=== PATIENT | male | born 1995 | race Caucasian/White ===

== ENCOUNTER 2019-12-18 21:33 | Emergency (ER) | payer BC ==
[~2019-12-18] VITALS: Ht 190.5 cm; Wt 104.5 kg
[2019-12-18 22:11] LABS: BASOPHILS # (AUTO) 0.1 X10'3 (0-0.2); BASOPHILS % (AUTO) 1.1 % (0-1); EOSINOPHILS # (AUTO) 0.1 X10'3 (0-0.9); EOSINOPHILS % (AUTO) 0.7 % (0-6); HEMATOCRIT 47.1 % (42.0-52.0); HEMOGLOBIN 16.5 g/dl (14.0-17.9); LYMPHOCYTES # (AUTO) 3.7 X10'3 (1.1-4.8); LYMPHOCYTES % (AUTO) 44.7 % (21-51); MEAN CORPUSCULAR HEMOGLOBIN 33.3 PG (27.0-31.0); MEAN CORPUSCULAR HGB CONC 34.9 g/dL (33.0-36.5); MEAN CORPUSCULAR VOLUME 95.2 FL (78-98); MEAN PLATELET VOLUME 9.3 FL (7.4-10.4); MONOCYTES # (AUTO) 0.6 X10'3 (0-0.9); MONOCYTES % (AUTO) 7.5 % (2-12); NEUTROPHILS # (AUTO) 3.8 X10'3 (1.8-7.7); PLATELET COUNT 218 X10'3 (140-440); RED BLOOD COUNT 4.95 X10'6 (4.70-6.10); RED CELL DISTRIBUTION WIDTH 13.3 % (11.5-14.5); WHITE BLOOD COUNT 8.3 X10'3 (4.5-11.0)
[2019-12-18 22:22] LABS: ALANINE AMINOTRANSFERASE 113 U/L (12-78); ALBUMIN 4.3 G/DL (3.4-5.0); ALBUMIN/GLOBULIN RATIO 1.2 (1.1-1.5); ALKALINE PHOSPHATASE 60 IU/L (46-116); ANION GAP 8 (8-16); ASPARTATE AMINO TRANSFERASE 79 U/L (10-37); BILIRUBIN,TOTAL 0.5 MG/DL (0.1-1.0); BLOOD UREA NITROGEN 11 MG/DL (7-18); BUN/CREATININE RATIO 8.9 (5.4-32.0); CALCIUM 9.1 MG/DL (8.5-10.1); CHLORIDE 102 MMOL/L (99-107); CREATININE 1.23 MG/DL (0.60-1.10); GLUCOSE 98 MG/DL (70-104); LIPASE 1357 U/L (73-393); POTASSIUM 4.2 MMOL/L (3.5-5.1); SODIUM 138 MMOL/L (135-145); TOTAL CARBON DIOXIDE 28.3 MMOL/L (24-32); TOTAL PROTEIN 7.8 G/DL (6.4-8.2); eGFR 72 ML/MIN
[2019-12-18] MEDS ORDERED: ONDA4TAB12 PO (23:31)
[2019-12-18] MEDS ORDERED: HYDR-3965 PO (23:31)
[2019-12-18 23:45] VITALS: BP 163/105
== END 2019-12-18 23:46 | disposition home or self-care (01) ==
LOC: ER 21:34
DX: K85.90 Acute pancreatitis without necrosis or infection, unspecified (principal); R10.84 Generalized abdominal pain; Z72.89 Other problems related to lifestyle
CPT/HCPCS: 36415; 80053; 83690; 85025; 99284

== ENCOUNTER 2019-12-22 22:40 | Inpatient (IN) | payer BC ==
[~2019-12-22] VITALS: Ht 190.5 cm; Wt 104.5 kg
[~2019-12-22 22:40] MED LIST: HYDR-3965 PO; ONDA4TAB12 PO
[2019-12-22] MEDS ORDERED: normal saline 1000ml 1,000 ML IVB ONE (22:45)
[2019-12-22 23:14] LABS: BASOPHILS % (AUTO) 0.1 % (0-1); EOSINOPHILS % (AUTO) 0.1 % (0-6); LYMPHOCYTES # (AUTO) 0.7 X10'3 (1.1-4.8); LYMPHOCYTES % (AUTO) 3.7 % (21-51); MEAN CORPUSCULAR HEMOGLOBIN 32.8 PG (27.0-31.0); MEAN CORPUSCULAR HGB CONC 34.8 g/dL (33.0-36.5); MEAN CORPUSCULAR VOLUME 94.1 FL (78-98); MEAN PLATELET VOLUME 9.3 FL (7.4-10.4); MONOCYTES # (AUTO) 1.1 X10'3 (0-0.9); MONOCYTES % (AUTO) 5.8 % (2-12); NEUTROPHILS # (AUTO) 16.4 X10'3 (1.8-7.7); NEUTROPHILS % (AUTO) 90.3 % (42-75); PLATELET COUNT 263 X10'3 (140-440); RED CELL DISTRIBUTION WIDTH 13.8 % (11.5-14.5); WHITE BLOOD COUNT 18.2 X10'3 (4.5-11.0)
[2019-12-22 23:17] LABS: HEMATOCRIT 61.2 % (42.0-52.0); HEMOGLOBIN 21.3 g/dl (14.0-17.9)
[2019-12-22 23:26] LABS: ALANINE AMINOTRANSFERASE 355 U/L (12-78); ALBUMIN/GLOBULIN RATIO 0.9 (1.1-1.5); ALKALINE PHOSPHATASE 118 IU/L (46-116); ANION GAP 20 (8-16); ASPARTATE AMINO TRANSFERASE 88 U/L (10-37); BLOOD UREA NITROGEN 15 MG/DL (7-18); BUN/CREATININE RATIO 9.7 (5.4-32.0); CALCIUM 9.3 MG/DL (8.5-10.1); CHLORIDE 96 MMOL/L (99-107); CREATININE 1.54 MG/DL (0.60-1.10); GLUCOSE 195 MG/DL (70-104); POTASSIUM 4.3 MMOL/L (3.5-5.1); SODIUM 133 MMOL/L (135-145); TOTAL CARBON DIOXIDE 16.6 MMOL/L (24-32); TOTAL PROTEIN 8.3 G/DL (6.4-8.2); eGFR 55 ML/MIN
[2019-12-22 23:28] LABS: AMYLASE 484 U/L (25-115)
[2019-12-22] MEDS ORDERED: ondansetron/PF 4mg/2ml inj IV ONE (23:35)
[2019-12-22] MEDS ORDERED: normal saline 1000ML IV soln IVB ONE (23:35)
[2019-12-22] MEDS ORDERED: morphine 4 MG/ML inj SYRINge IV ONE (23:35)
[2019-12-22 23:48] LABS: LIPASE 10290 U/L (73-393)
[2019-12-22] MEDS ORDERED: HYDR-3965 PO (23:57)
[2019-12-22] MEDS ORDERED: ONDA4TAB6 PO (23:57)
[2019-12-23] MEDS ORDERED: potassium Cl 20 mEq SR tablet PO PRN ×2 (00:10)
[2019-12-23] MEDS ORDERED: haloperidol lactate 5mg/ml inj IM PRN (00:10)
[2019-12-23] MEDS ORDERED: mag hydrox/Alum hydrox/simeth 30ml oral suspension PO PRN (00:10)
[2019-12-23] MEDS ORDERED: magnesium 4gm in 100ml NS 100 ML IV PRN (00:10)
[2019-12-23] MEDS ORDERED: potassium CL 10mEq/100ml bag 100 ML IV PRN ×2 (00:10)
[2019-12-23] MEDS ORDERED: haloperidol 5mg tablet PO PRN (00:10)
[2019-12-23] MEDS ORDERED: LORazepam 2 mg/ml vial IV PRN (00:10)
[2019-12-23] MEDS ORDERED: magnesium 2GM in 50ml NS 50 ML IV PRN (00:10)
[2019-12-23] MEDS ORDERED: LORazepam 2 mg/ml vial IV ONE ×2 (00:10→12:35)
[2019-12-23] MEDS ORDERED: acetaminophen 325mg tablet PO PRN (00:10)
[2019-12-23] MEDS ORDERED: thiamine inj. 100 MG in normal saline 100ml IV soln 100 ML IV ONE (00:10)
[2019-12-23] MEDS ORDERED: ondansetron/PF 4mg/2ml inj IV PRN (00:10)
[2019-12-23] MEDS ORDERED: magnesium Cl slow-release 64mg tablet PO PRN (00:10)
[2019-12-23] MEDS: normal saline 1000ml 1,000 ML IV SCH ×2 (00:44→04:13)
[2019-12-23] MEDS: morphine 2 MG/ML inj. syringe IV PRN ×3 (00:59→20:10)
[2019-12-23 01:27] LABS: CLARITY,URINE SLIGHTLY CLOUDY (Clear); GLUCOSE, URINE NEGATIVE (Neg); KETONES,URINE 15 mg/dl (Neg); LEUKOCYTE ESTERASE ,URINE NEGATIVE (Neg); NITRITES, URINE NEGATIVE (Neg); OCCULT BLOOD,URINE LARGE (Neg); PH,URINE 5.5 (4.8-8.0); PROTEIN,URINE 100 mg/dl (Neg)
[2019-12-23 01:28] LABS: COLOR,URINE Dark Yellow (Yellow); UA COLLECTION TYPE CLN CATCH MIDSTREAM
[2019-12-23 01:43] LABS: BACTERIA,URINE 3+ /HPF (Neg); MUCUS STRANDS FEW /LPF (Neg); RBC,URINE 0-2 /HPF (0-2); SQUAMOUS EPITHELIAL CELL,UR FEW /LPF (FEW)
[2019-12-23 02:00] VITALS: BP 138/89
[2019-12-23 05:14] LABS: ALANINE AMINOTRANSFERASE 245 U/L (12-78); ALBUMIN 3.2 G/DL (3.4-5.0); ALBUMIN/GLOBULIN RATIO 0.9 (1.1-1.5); ALKALINE PHOSPHATASE 89 IU/L (46-116); ANION GAP 12 (8-16); ASPARTATE AMINO TRANSFERASE 64 U/L (10-37); BILIRUBIN,TOTAL 0.7 MG/DL (0.1-1.0); BLOOD UREA NITROGEN 12 MG/DL (7-18); BUN/CREATININE RATIO 10.8 (5.4-32.0); CALCIUM 7.7 MG/DL (8.5-10.1); CHLORIDE 103 MMOL/L (99-107); CREATININE 1.11 MG/DL (0.60-1.10); GLUCOSE 160 MG/DL (70-104); POTASSIUM 4.6 MMOL/L (3.5-5.1); SODIUM 134 MMOL/L (135-145); TOTAL CARBON DIOXIDE 18.9 MMOL/L (24-32); TOTAL PROTEIN 6.7 G/DL (6.4-8.2); eGFR 81 ML/MIN
[2019-12-23 05:25] LABS: LIPASE 7477 U/L (73-393)
[2019-12-23 05:35] LABS: BASOPHILS % (AUTO) 0.2 % (0-1); EOSINOPHILS % (AUTO) 0 % (0-6); HEMATOCRIT 56.5 % (42.0-52.0); LYMPHOCYTES # (AUTO) 0.7 X10'3 (1.1-4.8); LYMPHOCYTES % (AUTO) 4.3 % (21-51); MEAN CORPUSCULAR HEMOGLOBIN 33.3 PG (27.0-31.0); MEAN CORPUSCULAR HGB CONC 34.8 g/dL (33.0-36.5); MEAN CORPUSCULAR VOLUME 95.9 FL (78-98); MONOCYTES # (AUTO) 1.1 X10'3 (0-0.9); MONOCYTES % (AUTO) 7.2 % (2-12); NEUTROPHILS # (AUTO) 13.9 X10'3 (1.8-7.7); NEUTROPHILS % (AUTO) 88.3 % (42-75); PLATELET COUNT 198 X10'3 (140-440); RED BLOOD COUNT 5.89 X10'6 (4.70-6.10); RED CELL DISTRIBUTION WIDTH 13.7 % (11.5-14.5); WHITE BLOOD COUNT 15.7 X10'3 (4.5-11.0)
[2019-12-23 05:41] LABS: HEMOGLOBIN 19.6 g/dl (14.0-17.9)
[2019-12-23 05:49] LABS: TOTAL CELLS COUNTED 100
[2019-12-23 05:50] LABS: PLATELET ESTIMATE NORMAL; POLYCHROMASIA FEW; TOXIC GRANULATION 1+
[2019-12-23 06:00] VITALS: BP 164/107
--- NOTE | 2019-12-23 07:07 | NUR ---
Patient in room PCU 3024. I have received report from LATASHA oHlm and had the opportunity to ask questions and assume patient care.
[2019-12-23] MEDS: K and/or MAG REPLACEMENT MC SCH ×2 (08:55→20:00)
[2019-12-23] MEDS: folic acid 1mg/0.2ml inj IV SCH (09:20)
[2019-12-23] MEDS: thiamine inj. 100 MG, MVI, adult No.4 with vit. K 10 ML in dextrose 5% water 500ml 500 ML IV SCH ×3 (09:21)
--- NOTE | 2019-12-23 10:52 | NUR ---
Uriel Davis regarding pt HR PAGER ID: [phone] MESSAGE: [id number]: Regis Villatoro Malu LOERAChristopher pt resting HR 100-110s, when ambulating 140s-150s. Asymptomatic. - germain [phone] Addendum: 12/23/19 at 1053 by Germain Huber RN VOID, steve pt
[2019-12-23 11:00] VITALS: BP 162/107
--- NOTE | 2019-12-23 11:00 | NUR ---
PAGER ID: [phone] MESSAGE: [id number]: García huertas: My apologies for last page. Incorrect pt. Resting HR 100-110, ambulating 140-150 -Fely [phone]
[2019-12-23] MEDS: dextrose 5%-normal saline 1,000 ML IV SCH ×2 (11:13→20:15)
--- NOTE | 2019-12-23 11:49 | NUR ---
Paged Ryan regarding pt BP PAGER ID: [phone] MESSAGE: [id number]: García Valdez: Pt AM and noon bp have been 160 SBP and 100 DBP. No HTN rx ordered -Fely [phone]
--- NOTE | 2019-12-23 12:35 | NUR ---
New orders from Ativan 2mg now per Ryan
[2019-12-23 13:15] LABS: HIV ANTIBODY 1&2 RAPID NON-REACTIVE (Neg)
--- NOTE | 2019-12-23 14:22 | NUR ---
PAGER ID: [phone] MESSAGE: [id number]: García Valdez: May I place pt on hyper/hypoglycemia protocol? Pt had 2+ BS of >160. Last bs 210. Would you also like to continue D5NS? -Fely [phone]
[2019-12-23 15:00] VITALS: BP 151/105
[2019-12-23] MEDS ORDERED: diltiazem 5mg/ml 5ml inj. IV ONE (16:15)
[2019-12-23] MEDS: diltiazem-NS 100mg/100ml 100 ML IV SCH (17:05)
[2019-12-23 18:00] VITALS: BP 150/100
[2019-12-23] MEDS ORDERED: insulin Lispro (HumaLOG) vial - multi-dose SQ SCH (18:40)
[2019-12-23] MEDS ORDERED: glucagon, human recombinant 1mg kit SUBCUT PRN (18:40)
[2019-12-23] MEDS ORDERED: dextrose ORAL solution 15 GM/59 ML bottle PO PRN ×2 (18:40)
[2019-12-23] MEDS ORDERED: dextrose 50%-water 50ml dispensing syringe IV PRN ×2 (18:40)
[2019-12-23] MEDS ORDERED: MESSAGE TO PHARMACY PO ONE (18:40)
--- NOTE | 2019-12-23 18:43 | NUR ---
Problems reprioritized. Patient report given, questions answered & plan of care reviewed with LATASHA Perez.
--- NOTE | 2019-12-23 20:35 | NUR ---
Patient in room PCU 3024. I have received report from Fely PAGAN and had the opportunity to ask questions and assume patient care. Addendum: 12/23/19 at 2036 by Ana Bucio RN Report at 1800
[2019-12-23 20:56] LABS: HEMOGLOBIN A1C 5.1 % (4.5-6.2)
[2019-12-23] MEDS ORDERED: insulin glargine (Lantus) pen - multi-dose SQ SCH (21:00)
[2019-12-23 22:00] VITALS: BP 139/101
--- NOTE | 2019-12-23 23:04 | NUR ---
Patient has met protocol for hyperglycemia with two bs over 160. Started lantus.
--- NOTE | 2019-12-23 23:34 | NUR ---
MESSAGE: Re: José MiguelSajanua rm [id number] Patient is on a Cardizem drip running at 5 mls/hr. His heart rate has been trending in the 130's Dr. Rucker has increased the rate on the drip to 7 mls/hr.
[2019-12-24] VITALS (15 sets, daily range): BP systolic 115–171; BP diastolic 76–126
--- NOTE | 2019-12-24 | NUR ---
Per Dr. Rucker, check change in HR and BP two hours after changing Cardizem drip from 5ml/hr to 7ml/hr.
[2019-12-24] MEDS: morphine 2 MG/ML inj. syringe IV PRN ×2 (01:18→08:15)
[2019-12-24] MEDS: dextrose 5%-normal saline 1,000 ML IV SCH ×3 (01:20→23:17)
--- NOTE | 2019-12-24 02:58 | NUR ---
PAGER ID: [phone] MESSAGE: Re: García Valdez [id number]. Cardizem drip is at 7 ml/hr. Pts HR is trending between 115-125, Bp 150/108.
--- NOTE | 2019-12-24 03:17 | NUR ---
Cardizem drip changed from 7 to 10
--- NOTE | 2019-12-24 03:19 | NUR ---
Patient was placed on hyperglycemic protocol by day shift, upon discussion with Dr. Rucker about patients history and condition hyperglycemic protocol was removed and corresponding meds dc'd.
[2019-12-24 05:50] LABS: BASOPHILS % (AUTO) 0.1 % (0-1); EOSINOPHILS % (AUTO) 0 % (0-6); HEMATOCRIT 53.9 % (42.0-52.0); LYMPHOCYTES # (AUTO) 0.8 X10'3 (1.1-4.8); LYMPHOCYTES % (AUTO) 4.6 % (21-51); MEAN CORPUSCULAR HEMOGLOBIN 32.8 PG (27.0-31.0); MEAN CORPUSCULAR HGB CONC 34.4 g/dL (33.0-36.5); MEAN CORPUSCULAR VOLUME 95.6 FL (78-98); MEAN PLATELET VOLUME 9.7 FL (7.4-10.4); MONOCYTES % (AUTO) 11.3 % (2-12); NEUTROPHILS # (AUTO) 14.5 X10'3 (1.8-7.7); PLATELET COUNT 191 X10'3 (140-440); RED BLOOD COUNT 5.64 X10'6 (4.70-6.10); RED CELL DISTRIBUTION WIDTH 13.9 % (11.5-14.5); WHITE BLOOD COUNT 17.3 X10'3 (4.5-11.0)
[2019-12-24] MEDS: diltiazem-NS 100mg/100ml 100 ML IV SCH ×2 (05:52→15:42)
[2019-12-24 05:57] LABS: HEMOGLOBIN 18.5 g/dl (14.0-17.9)
--- NOTE | 2019-12-24 06:03 | NUR ---
MESSAGE: re: García José Miguel rm [id number]. Critical value hemoglobin 18.5, hematocrit 53.5 Dr. Chaim cespedes.
[2019-12-24 06:06] LABS: ALANINE AMINOTRANSFERASE 134 U/L (12-78); ALBUMIN 2.7 G/DL (3.4-5.0); ALBUMIN/GLOBULIN RATIO 0.8 (1.1-1.5); ALKALINE PHOSPHATASE 70 IU/L (46-116); ANION GAP 10 (8-16); ASPARTATE AMINO TRANSFERASE 38 U/L (10-37); BILIRUBIN,TOTAL 1.1 MG/DL (0.1-1.0); BLOOD UREA NITROGEN 9 MG/DL (7-18); BUN/CREATININE RATIO 7.8 (5.4-32.0); CALCIUM 7.4 MG/DL (8.5-10.1); CHLORIDE 102 MMOL/L (99-107); CREATININE 1.15 MG/DL (0.60-1.10); GLUCOSE 194 MG/DL (70-104); MAGNESIUM 1.5 MG/DL (1.5-2.4); PHOSPHORUS 1.4 MG/DL (2.3-4.5); POTASSIUM 3.9 MMOL/L (3.5-5.1); SODIUM 137 MMOL/L (135-145); TOTAL PROTEIN 6.2 G/DL (6.4-8.2); eGFR 77 ML/MIN
--- NOTE | 2019-12-24 06:23 | NUR ---
Problems reprioritized. Patient report given, questions answered & plan of care reviewed with Fely PAGAN.
--- NOTE | 2019-12-24 06:26 | NUR ---
Patient in room PCU 3024. I have received report from LATASHA Perez and had the opportunity to ask questions and assume patient care.
[2019-12-24 06:31] LABS: LIPASE 4202 U/L (73-393)
--- NOTE | 2019-12-24 07:38 | NUR ---
Paged Ryan regarding low phos level PAGER ID: [phone] MESSAGE: [id number]: García Valdez - Pt phos is 1.4, would you like to replace? Kindly advise -Fely [phone]
[2019-12-24] MEDS: folic acid 1mg/0.2ml inj IV SCH (07:59)
[2019-12-24] MEDS: K and/or MAG REPLACEMENT MC SCH ×2 (08:01→19:21)
[2019-12-24] MEDS: thiamine inj. 100 MG, MVI, adult No.4 with vit. K 10 ML in dextrose 5% water 500ml 500 ML IV SCH ×3 (08:16)
[2019-12-24 11:23] LABS: HBSAG SCREEN Negative (Negative); HEP A AB, IGM Negative (Negative); HEPATITIS C ANTIBODY <0.1 s/co ratio (0.0-0.9)
[2019-12-24] MEDS ORDERED: heparin, porcine 5000 units/ml vial SQ SCH (11:50)
[2019-12-24] MEDS ORDERED: LORazepam 2 mg/ml vial IV ONE (12:45)
--- NOTE | 2019-12-24 13:11 | NUR ---
New orders from [facility] for 2mg IV now dose of ativan and favian 1mg PO ativan q 8hours.
--- NOTE | 2019-12-24 13:11 | NUR ---
Spoke to minna, stated that they wont Addendum: 12/24/19 at 1313 by Fely Huber RN VOID
[2019-12-24] MEDS: aspirin 81mg tablet.DR PO SCH (13:22)
[2019-12-24] MEDS ORDERED: potassium phosphate inj 30 MMOL in normal saline 500ml IV soln 500 ML IV ONE (14:10)
[2019-12-24] MEDS ORDERED: magnesium 4gm in 100ml NS 100 ML IV ONE (14:10)
[2019-12-24] MEDS: propranolol 10mg tablet PO SCH ×2 (15:02→20:22)
[2019-12-24] MEDS: LIPASE/PROTEASE/AMYLASE 16,800 UNIT CAPSULE.DR PO SCH (17:04)
--- NOTE | 2019-12-24 18:01 | NUR ---
Problems reprioritized. Patient report given, questions answered & plan of care reviewed with LATASHA Cuevas.
[2019-12-24] MEDS: lactobacillus rhamnosus 10,000 MMU CELLS/CAPSULE PO SCH (19:10)
[2019-12-24] MEDS: piperacillin/tazo 3.375gm/50ml 50 ML IV SCH (19:10)
[2019-12-24] MEDS ORDERED: LORazepam 1 MG tablet PO PRN (20:45)
[2019-12-24] MEDS: LORazepam 1 MG tablet PO SCH (21:36)
[2019-12-24] MEDS ORDERED: pantoprazole 40 MG vial IV ONE (22:15)
[2019-12-24] MEDS: magnesium hydroxide 30ml (MOM) UD suspension PO PRN (23:25)
[2019-12-25] VITALS (8 sets, daily range): BP systolic 107–142; BP diastolic 58–92
[2019-12-25] MEDS ORDERED: LORazepam 1 MG tablet PO PRN (00:10)
[2019-12-25] MEDS ORDERED: LORazepam 2 mg/ml vial IV PRN (00:10)
[2019-12-25] MEDS: heparin, porcine 5000 units/ml vial SQ SCH ×4 (00:22→23:57)
[2019-12-25] MEDS: diltiazem-NS 100mg/100ml 100 ML IV SCH (01:44)
--- NOTE | 2019-12-25 02:06 | NUR ---
PAGER ID: [phone] MESSAGE: This is LATASHA Campa of PCU. Pt in 3024A, White, García 24 M; Dx : Acute pancreatitis; c/o pain on suprapubic area and left flank pain; urine is dark shine & cloudy. Pt is in Zosyn q8h. Please advice. Thanks!
[2019-12-25] MEDS: piperacillin/tazo 3.375gm/50ml 50 ML IV SCH ×4 (02:23→23:57)
[2019-12-25 03:43] LABS: CLARITY,URINE SLIGHTLY CLOUDY (Clear); COLOR,URINE AMBER (Yellow); GLUCOSE, URINE NEGATIVE (Neg); KETONES,URINE NEGATIVE (Neg); LEUKOCYTE ESTERASE ,URINE NEGATIVE (Neg); NITRITES, URINE NEGATIVE (Neg); OCCULT BLOOD,URINE LARGE (Neg); PROTEIN,URINE 100 mg/dl (Neg); UA COLLECTION TYPE VOIDED
[2019-12-25 04:03] LABS: RBC,URINE 20-50 /HPF (0-2)
[2019-12-25 04:04] LABS: BACTERIA,URINE NONE SEEN /HPF (Neg); MUCUS STRANDS MODERATE /LPF (Neg); SQUAMOUS EPITHELIAL CELL,UR FEW /LPF (FEW)
[2019-12-25 04:05] LABS: FINE GRANULAR CAST 0-3 /LPF (NEGATIVE)
[2019-12-25] MEDS: LORazepam 1 MG tablet PO SCH ×4 (04:55→23:57)
[2019-12-25 05:38] LABS: BASOPHILS % (AUTO) 0.2 % (0-1); EOSINOPHILS % (AUTO) 0 % (0-6); HEMATOCRIT 47.2 % (42.0-52.0); HEMOGLOBIN 16.2 g/dl (14.0-17.9); LYMPHOCYTES # (AUTO) 1.4 X10'3 (1.1-4.8); LYMPHOCYTES % (AUTO) 9.1 % (21-51); MEAN CORPUSCULAR HEMOGLOBIN 32.7 PG (27.0-31.0); MEAN CORPUSCULAR HGB CONC 34.4 g/dL (33.0-36.5); MEAN PLATELET VOLUME 9.7 FL (7.4-10.4); MONOCYTES # (AUTO) 1.8 X10'3 (0-0.9); NEUTROPHILS # (AUTO) 12.1 X10'3 (1.8-7.7); NEUTROPHILS % (AUTO) 78.7 % (42-75); PLATELET COUNT 171 X10'3 (140-440); RED BLOOD COUNT 4.97 X10'6 (4.70-6.10); RED CELL DISTRIBUTION WIDTH 13.5 % (11.5-14.5); WHITE BLOOD COUNT 15.3 X10'3 (4.5-11.0)
[2019-12-25] MEDS: morphine 2 MG/ML inj. syringe IV PRN ×2 (05:45→21:58)
[2019-12-25 05:51] LABS: ALANINE AMINOTRANSFERASE 93 U/L (12-78); ALBUMIN 2.4 G/DL (3.4-5.0); ALBUMIN/GLOBULIN RATIO 0.6 (1.1-1.5); ALKALINE PHOSPHATASE 68 IU/L (46-116); ANION GAP 8 (8-16); ASPARTATE AMINO TRANSFERASE 35 U/L (10-37); BILIRUBIN,TOTAL 1.6 MG/DL (0.1-1.0); BLOOD UREA NITROGEN 9 MG/DL (7-18); BUN/CREATININE RATIO 9.6 (5.4-32.0); CALCIUM 7.2 MG/DL (8.5-10.1); CHLORIDE 101 MMOL/L (99-107); CREATININE 0.94 MG/DL (0.60-1.10); GLUCOSE 126 MG/DL (70-104); MAGNESIUM 2.5 MG/DL (1.5-2.4); PHOSPHORUS 1.7 MG/DL (2.3-4.5); POTASSIUM 3.9 MMOL/L (3.5-5.1); SODIUM 135 MMOL/L (135-145); TOTAL CARBON DIOXIDE 26.1 MMOL/L (24-32); TOTAL PROTEIN 6.1 G/DL (6.4-8.2); eGFR > 90 ML/MIN
[2019-12-25 05:52] LABS: LIPASE 1977 U/L (73-393)
--- NOTE | 2019-12-25 06:45 | NUR ---
Problems reprioritized. Patient report given, questions answered & plan of care reviewed with LATASHA Armstrong.
[2019-12-25] MEDS: pantoprazole 40 MG vial IV SCH (07:49)
[2019-12-25] MEDS: propranolol 10mg tablet PO SCH ×3 (07:50→20:29)
[2019-12-25] MEDS: aspirin 81mg tablet.DR PO SCH (07:50)
[2019-12-25] MEDS: lactobacillus rhamnosus 10,000 MMU CELLS/CAPSULE PO SCH ×2 (07:50→20:28)
[2019-12-25] MEDS: LIPASE/PROTEASE/AMYLASE 16,800 UNIT CAPSULE.DR PO SCH ×3 (07:50→17:45)
[2019-12-25] MEDS: K and/or MAG REPLACEMENT MC SCH ×2 (07:51→20:00)
[2019-12-25 08:20] LABS: PLATELET ESTIMATE NORMAL; SMUDGE CELLS FEW; TOTAL CELLS COUNTED 100
[2019-12-25 08:21] LABS: TOXIC GRANULATION 1+; TOXIC VACUOLATION 1+
[2019-12-25] MEDS: thiamine inj. 100 MG, MVI, adult No.4 with vit. K 10 ML in dextrose 5% water 500ml 500 ML IV SCH ×3 (10:37)
[2019-12-25] MEDS: folic acid 1mg tablet PO SCH (10:37)
[2019-12-25] MEDS: dextrose 5%-normal saline 1,000 ML IV SCH (10:37)
--- NOTE | 2019-12-25 13:47 | NUR ---
Administered enema per MD order, patient in bathroom, will continue to monitor
--- NOTE | 2019-12-25 18:12 | NUR ---
Patient in room PCU 3024. I have received report from CATRINA PAGAN and had the opportunity to ask questions and assume patient care.
--- NOTE | 2019-12-25 18:22 | NUR ---
Problems reprioritized. Patient report given, questions answered & plan of care reviewed with LATASHA Cooper. Patient stable at transfer of care.
[2019-12-25] MEDS ORDERED: potassium phosphate inj 30 MMOL in normal saline 500ml IV soln 500 ML IV ONE (18:25)
[2019-12-25] MEDS: magnesium hydroxide 30ml (MOM) UD suspension PO PRN (19:27)
[2019-12-26 02:33] VITALS: BP 128/80
[2019-12-26] MEDS: dextrose 5%-normal saline 1,000 ML IV SCH ×2 (04:05→08:01)
[2019-12-26 05:44] LABS: BASOPHILS % (AUTO) 0.1 % (0-1); EOSINOPHILS % (AUTO) 0.1 % (0-6); HEMATOCRIT 43.4 % (42.0-52.0); HEMOGLOBIN 14.9 g/dl (14.0-17.9); LYMPHOCYTES # (AUTO) 1.6 X10'3 (1.1-4.8); MEAN CORPUSCULAR HEMOGLOBIN 32.6 PG (27.0-31.0); MEAN CORPUSCULAR HGB CONC 34.4 g/dL (33.0-36.5); MEAN CORPUSCULAR VOLUME 94.9 FL (78-98); MEAN PLATELET VOLUME 9.4 FL (7.4-10.4); MONOCYTES # (AUTO) 1.6 X10'3 (0-0.9); MONOCYTES % (AUTO) 11.2 % (2-12); NEUTROPHILS # (AUTO) 11.3 X10'3 (1.8-7.7); NEUTROPHILS % (AUTO) 77.6 % (42-75); PLATELET COUNT 205 X10'3 (140-440); RED BLOOD COUNT 4.58 X10'6 (4.70-6.10); RED CELL DISTRIBUTION WIDTH 13.2 % (11.5-14.5); WHITE BLOOD COUNT 14.6 X10'3 (4.5-11.0)
--- NOTE | 2019-12-26 05:48 | NUR ---
pt rested through the night. NO BM, shine urine noted. pain meds given, bowel care meds were done. Pt did two laps of unit also.
[2019-12-26 05:59] LABS: ALANINE AMINOTRANSFERASE 121 U/L (12-78); ALBUMIN 2.4 G/DL (3.4-5.0); ALBUMIN/GLOBULIN RATIO 0.6 (1.1-1.5); ALKALINE PHOSPHATASE 90 IU/L (46-116); ANION GAP 9 (8-16); ASPARTATE AMINO TRANSFERASE 76 U/L (10-37); BLOOD UREA NITROGEN 8 MG/DL (7-18); BUN/CREATININE RATIO 8.4 (5.4-32.0); CALCIUM 7.2 MG/DL (8.5-10.1); CHLORIDE 100 MMOL/L (99-107); CREATININE 0.95 MG/DL (0.60-1.10); GLUCOSE 128 MG/DL (70-104); LIPASE 655 U/L (73-393); MAGNESIUM 2.4 MG/DL (1.5-2.4); PHOSPHORUS 1.6 MG/DL (2.3-4.5); POTASSIUM 3.6 MMOL/L (3.5-5.1); SODIUM 135 MMOL/L (135-145); TOTAL CARBON DIOXIDE 25.6 MMOL/L (24-32); TOTAL PROTEIN 6.2 G/DL (6.4-8.2); eGFR > 90 ML/MIN
[2019-12-26 06:00] VITALS: BP 133/80
[2019-12-26] MEDS: morphine 2 MG/ML inj. syringe IV PRN ×2 (06:07→18:19)
--- NOTE | 2019-12-26 06:23 | NUR ---
Problems reprioritized. Patient report given, questions answered & plan of care reviewed with Fawn PAGAN.
--- NOTE | 2019-12-26 06:44 | NUR ---
Patient in room PCU 3024. I have received report from Gloria PAGAN and had the opportunity to ask questions and assume patient care.
[2019-12-26 07:14] LABS: TOTAL CELLS COUNTED 100
[2019-12-26 07:15] LABS: LARGE PLATELETS FEW; PLATELET ESTIMATE NORMAL
[2019-12-26] MEDS: LIPASE/PROTEASE/AMYLASE 16,800 UNIT CAPSULE.DR PO SCH ×3 (07:54→18:18)
[2019-12-26] MEDS: piperacillin/tazo 3.375gm/50ml 50 ML IV SCH ×3 (07:54→23:56)
[2019-12-26] MEDS: pantoprazole 40 MG vial IV SCH (07:54)
[2019-12-26] MEDS: heparin, porcine 5000 units/ml vial SQ SCH ×2 (07:55→16:39)
[2019-12-26] MEDS: thiamine 100mg tablet PO SCH (07:55)
[2019-12-26] MEDS: multivitamins, therapeutics tablet PO SCH (07:55)
[2019-12-26] MEDS: LORazepam 1 MG tablet PO SCH ×2 (07:55→16:38)
[2019-12-26] MEDS: propranolol 10mg tablet PO SCH ×3 (07:56→20:51)
[2019-12-26] MEDS: aspirin 81mg tablet.DR PO SCH (07:56)
[2019-12-26] MEDS: folic acid 1mg tablet PO SCH (07:56)
[2019-12-26] MEDS: lactobacillus rhamnosus 10,000 MMU CELLS/CAPSULE PO SCH ×2 (07:56→20:51)
[2019-12-26] MEDS: K and/or MAG REPLACEMENT MC SCH ×2 (08:00→20:00)
[2019-12-26 11:00] VITALS: BP 134/78
--- NOTE | 2019-12-26 12:23 | NUR ---
Page sent to Dr. Davis: PAGER ID: [phone] MESSAGE: [id number] García Valdez: His phosphorus is 1.6 mg/dL today, would you like it replaced? Thanks, Fawn [phone]
[2019-12-26] MEDS ORDERED: potassium phosphate inj 30 MMOL in normal saline 500ml IV soln 500 ML IV ONE (12:35)
--- NOTE | 2019-12-26 14:00 | NUR ---
Realized the morphine was pulled and scanned but unable to save into computer, system before I could save it.
[2019-12-26 15:00] VITALS: BP 133/35
--- NOTE | 2019-12-26 17:48 | NUR ---
Page sent to Dr. Davis: PAGER ID: [phone] MESSAGE: [id number] García Valdez: Can we add a pain medication for this patient? He has morphine PRN or Tylenol PRN. Pain is 6/10 currently. Thanks, Fawn [phone]
--- NOTE | 2019-12-26 18:22 | NUR ---
JANET GAVE MORPHINE FOR PAIN WHILE WAITING FOR PO PAIN MED ORDERS FROM . Patient in room PCU 3024. I have received report from JANET PAGAN and had the opportunity to ask questions and assume patient care.
[2019-12-26 18:30] VITALS: BP 132/80
--- NOTE | 2019-12-26 18:36 | NUR ---
Problems reprioritized. Patient report given, questions answered & plan of care reviewed with Gloria PAGAN.
[2019-12-26] MEDS: HYDROcodone/acetaminophen 5mg/325mg tablet PO PRN (22:44)
[2019-12-26 23:10] VITALS: BP 122/77
[2019-12-27] MEDS ORDERED: LORazepam 2 mg/ml vial IV PRN (00:10)
[2019-12-27] MEDS ORDERED: LORazepam 1 MG tablet PO PRN (00:10)
[2019-12-27] MEDS: dextrose 5%-normal saline 1,000 ML IV SCH (02:20)
[2019-12-27 03:00] VITALS: BP 142/67
--- NOTE | 2019-12-27 06:03 | NUR ---
pt rested most of the night. refused midnight ativan. asked for morphone at 0430 and promptly fell back asleep. Morphine not given
--- NOTE | 2019-12-27 06:06 | NUR ---
Problems reprioritized. Patient report given, questions answered & plan of care reviewed with Fawn PAGAN.
[2019-12-27 06:14] LABS: BASOPHILS % (AUTO) 0.1 % (0-1); EOSINOPHILS % (AUTO) 0.3 % (0-6); HEMOGLOBIN 14.8 g/dl (14.0-17.9); LYMPHOCYTES # (AUTO) 1.9 X10'3 (1.1-4.8); LYMPHOCYTES % (AUTO) 14.1 % (21-51); MEAN CORPUSCULAR HEMOGLOBIN 33.2 PG (27.0-31.0); MEAN CORPUSCULAR HGB CONC 34.4 g/dL (33.0-36.5); MEAN CORPUSCULAR VOLUME 96.4 FL (78-98); MEAN PLATELET VOLUME 9.5 FL (7.4-10.4); MONOCYTES % (AUTO) 14.6 % (2-12); NEUTROPHILS # (AUTO) 9.6 X10'3 (1.8-7.7); NEUTROPHILS % (AUTO) 70.9 % (42-75); PLATELET COUNT 215 X10'3 (140-440); RED BLOOD COUNT 4.46 X10'6 (4.70-6.10); RED CELL DISTRIBUTION WIDTH 13.3 % (11.5-14.5); WHITE BLOOD COUNT 13.6 X10'3 (4.5-11.0)
--- NOTE | 2019-12-27 06:14 | NUR ---
Patient in room PCU 3024. I have received report from Gloria PAGAN and had the opportunity to ask questions and assume patient care.
[2019-12-27 06:28] LABS: ALANINE AMINOTRANSFERASE 175 U/L (12-78); ALBUMIN 2.5 G/DL (3.4-5.0); ALBUMIN/GLOBULIN RATIO 0.6 (1.1-1.5); ALKALINE PHOSPHATASE 111 IU/L (46-116); ANION GAP 7 (8-16); ASPARTATE AMINO TRANSFERASE 111 U/L (10-37); BILIRUBIN,TOTAL 1.6 MG/DL (0.1-1.0); BLOOD UREA NITROGEN 7 MG/DL (7-18); BUN/CREATININE RATIO 7.7 (5.4-32.0); CALCIUM 7.9 MG/DL (8.5-10.1); CHLORIDE 103 MMOL/L (99-107); CREATININE 0.91 MG/DL (0.60-1.10); GLUCOSE 113 MG/DL (70-104); LIPASE 363 U/L (73-393); MAGNESIUM 2.6 MG/DL (1.5-2.4); PHOSPHORUS 2.4 MG/DL (2.3-4.5); POTASSIUM 3.5 MMOL/L (3.5-5.1); SODIUM 138 MMOL/L (135-145); TOTAL CARBON DIOXIDE 27.7 MMOL/L (24-32); TOTAL PROTEIN 6.5 G/DL (6.4-8.2); eGFR > 90 ML/MIN
[2019-12-27 07:00] VITALS: BP 124/72
[2019-12-27 07:17] LABS: TOTAL CELLS COUNTED 100
[2019-12-27 07:22] LABS: PLATELET ESTIMATE NORMAL; TOXIC GRANULATION 1+
[2019-12-27] MEDS: K and/or MAG REPLACEMENT MC SCH (08:00)
[2019-12-27] MEDS: thiamine 100mg tablet PO SCH (09:04)
[2019-12-27] MEDS: pantoprazole 40 MG vial IV SCH (09:04)
[2019-12-27] MEDS: lactobacillus rhamnosus 10,000 MMU CELLS/CAPSULE PO SCH (09:04)
[2019-12-27] MEDS: propranolol 10mg tablet PO SCH (09:04)
[2019-12-27] MEDS: folic acid 1mg tablet PO SCH (09:04)
[2019-12-27] MEDS: LORazepam 1 MG tablet PO SCH ×2 (09:04)
[2019-12-27] MEDS: multivitamins, therapeutics tablet PO SCH (09:04)
[2019-12-27] MEDS: LIPASE/PROTEASE/AMYLASE 16,800 UNIT CAPSULE.DR PO SCH (09:04)
[2019-12-27] MEDS: HYDROcodone/acetaminophen 5mg/325mg tablet PO PRN (09:04)
[2019-12-27] MEDS: piperacillin/tazo 3.375gm/50ml 50 ML IV SCH (09:04)
[2019-12-27] MEDS: aspirin 81mg tablet.DR PO SCH (09:05)
[2019-12-27] MEDS: heparin, porcine 5000 units/ml vial SQ SCH ×2 (09:10)
[2019-12-27 11:00] VITALS: BP 131/80
[2019-12-27] MEDS ORDERED: PROP10TA10 PO (11:08)
[2019-12-27] MEDS ORDERED: LACT1CAP26 PO (11:08)
[2019-12-27] MEDS ORDERED: PANT40TA4 PO (11:08)
[2019-12-27] MEDS ORDERED: MULT-25 PO (11:08)
[2019-12-27] MEDS ORDERED: LORA-269 PO (11:08)
[2019-12-27] MEDS ORDERED: LIPA1CAP30 PO (11:08)
[2019-12-27] MEDS ORDERED: HYDR-4383 PO (11:08)
[2019-12-27] MEDS ORDERED: FOLI0.4T2 PO (11:08)
[2019-12-27] MEDS ORDERED: THIA50TA10 PO (11:08)
[2019-12-27] MEDS ORDERED: AMOX-419 PO (11:10)
--- NOTE | 2019-12-27 11:33 | NUR ---
Patient has diet order for lactose free/full liquid diet. Met with patient at bedside to obtain food preferences that fit this diet order. Patient requested education r/t pancreatitis; provided pt with written pancreatitis education handout with verbal review. Addendum: 12/27/19 at [address] Amended: Links added.
--- NOTE | 2019-12-27 14:17 | NUR ---
Patient stable for discharge per MD order. All discharge education and information reviewed with patient before signing necessary paperwork. IV discontinued with catheter in tact, surveillance system monitor removed, patient belongings packed up, new Rx called in to pharmacy. Patient picked up by roommate in front of hospital.
== END 2019-12-27 13:45 | disposition home or self-care (01) | DRG 438 ==
LOC: ER 22:41 → ED HOLD 12-23 00:07 → PCU 3S 12-23 01:15
PROVIDERS: ADMIT Family Medicine; ATTEND Family Medicine
DX: K85.20 Alcohol induced acute pancreatitis without necrosis or infection (principal); J69.0 Pneumonitis due to inhalation of food and vomit; E87.1 Hypo-osmolality and hyponatremia; N17.9 Acute kidney failure, unspecified; N39.0 Urinary tract infection, site not specified; D75.1 Secondary polycythemia; E86.0 Dehydration; F10.20 Alcohol dependence, uncomplicated; I10 Essential (primary) hypertension; K59.00 Constipation, unspecified; R00.0 Tachycardia, unspecified; Z79.899 Other long term (current) drug therapy; Z71.41 Alcohol abuse counseling and surveillance of alcoholic
CPT/HCPCS: 36415; 71045; 74176; 80053; 81001; 82150; 82948; 83036; 83605; 83690; 83735; 84100; 84145; 84443; 85025; 86703; 86705; 86706; 86709; 86803; 87040; 87081; 87088; 87340; 96361; 96374; 96375; 97116; 97161; 97530; 99285; C9113; G0378; J1644; J1815; J2060; J2270; J2405; J2543; J3411; J3475; J3490; J7030; J7040; J7042; J7060